=== PATIENT | male | born 2000 | race African-American/Black ===

== ENCOUNTER 2020-07-04 13:06 | Emergency (ER) | payer OTHER ==
[~2020-07-04] VITALS: Ht 170.2 cm; Wt 67.5 kg
[2020-07-04 13:07] VITALS: BP 130/67
--- NOTE | 2020-07-04 13:43 | REP ---
INDICATION: fall injury COMPARISON: None. TECHNIQUE: Internal rotation, external rotation, and Y view. FINDINGS: Midclavicular shaft fracture noted with mild angulation. The acromioclavicular and glenohumeral joints are intact and normal. Subacromial space is normal. IMPRESSION: Midclavicular shaft fracture. Normal appearance to the acromioclavicular and glenohumeral joints. <Electronically signed by Dennis Bowens > 07/04/20 [id number]
--- NOTE | 2020-07-04 13:44 | REP ---
INDICATION: trauma, pain COMPARISON: None. TECHNIQUE: Two views of the left clavicle. FINDINGS: Midclavicular shaft fracture with mild angulation and overlying soft tissue swelling. Sternoclavicular and acromioclavicular joints appear intact and normal. IMPRESSION: Acute midclavicular shaft fracture. <Electronically signed by Dennis Bowens > 07/04/20 [id number]
[2020-07-04] MEDS ORDERED: ACETAMINOPHEN 500 MG TAB PO ONE (13:45)
== END 2020-07-04 14:07 | disposition home or self-care (01) ==
LOC: M ED 13:06
DX: S42.025A Nondisplaced fracture of shaft of left clavicle, initial encounter for closed fracture (principal); V00.311A Fall from snowboard, initial encounter; Y92.89 Other specified places as the place of occurrence of the external cause; Z88.0 Allergy status to penicillin; Z91.040 Latex allergy status

== ENCOUNTER 2021-08-14 21:00 | Emergency (ER) | payer OTHER ==
[~2021-08-14] VITALS: Ht 170.2 cm; Wt 65.9 kg
[2021-08-14 22:55] LABS: HEMATOCRIT 39.8 % (42.0-52.0); HEMOGLOBIN 12.8 g/dl (13.5-17.5); MEAN CORPUSCULAR HEMOGLOBIN 29.4 pg (27.0-33.0); MEAN CORPUSCULAR HGB CONC 32.2 g/dl (32.0-36.5); MEAN CORPUSCULAR VOLUME 91.3 fl (80.0-96.0); PLATELET COUNT, AUTOMATED 260 10^3/uL (150-450); RED BLOOD COUNT 4.36 10^6/uL (4.30-6.10); WHITE BLOOD COUNT 5.5 10^3/uL (4.0-10.0)
[2021-08-14 23:06] LABS: INR 1.02; PROTHROMBIN TIME 13.8 SECONDS (12.7-14.5)
[2021-08-14 23:07] LABS: PARTIAL THROMBOPLASTIN TIME 32.9 SECONDS (25.9-37.0)
[2021-08-14] MEDS ORDERED: AFRI0.058 (23:30)
[2021-08-14 23:39] VITALS: BP 118/75
== END 2021-08-14 23:40 | disposition home or self-care (01) ==
LOC: M ED 21:00
DX: R04.0 Epistaxis (principal); Z88.0 Allergy status to penicillin; Z91.040 Latex allergy status

== ENCOUNTER 2022-03-17 09:00 | Emergency (ER) | payer OTHER ==
[~2022-03-17] VITALS: Ht 170.2 cm; Wt 65.1 kg
[2022-03-17 09:00] VITALS: BP 109/59
[~2022-03-17 09:00] MED LIST: OXYM15SP2
== END 2022-03-17 10:29 | disposition left against medical advice (07) ==
LOC: M ED 09:00
DX: Z53.21 Procedure and treatment not carried out due to patient leaving prior to being seen by health care provider (principal)

== ENCOUNTER 2022-06-10 08:47 | Emergency (ER) | payer OTHER ==
[~2022-06-10] VITALS: Ht 170.2 cm; Wt 67.4 kg
[2022-06-10 10:55] VITALS: BP 125/74
== END 2022-06-10 10:58 | disposition home or self-care (01) ==
LOC: M ED 08:47
DX: R04.0 Epistaxis (principal); Z88.0 Allergy status to penicillin; Z91.040 Latex allergy status